=== PATIENT | female | born 1970 | race Caucasian/White ===

== ENCOUNTER 2016-05-20 08:31 | Emergency (ER) | payer BC, OTHER ==
[~2016-05-20] VITALS: Ht 177.8 cm; Wt 65.0 kg
[~2016-05-20 08:31] MED LIST: ALBU1AER9 INH; CHOL100010 PO; LORA24TA7 PO; MOME50SP5 NAE; MULTTAB58 PO; SENN-65 PO
[2016-05-20 08:41] VITALS: TEMP 36.8; Ht 177.8 cm; Wt 65.0 kg
[2016-05-20] MEDS ORDERED: CPRDOTS OT (09:03)
[2016-05-20] MEDS ORDERED: HYDR-5688 PO (09:03)
[2016-05-20] MEDS ORDERED: AMOX500T3 PO (09:03)
[2016-05-20] MEDS ORDERED: ALBU18002 INH (09:05)
[2016-05-20] MEDS ORDERED: RIZA10TA18 PO (09:05)
--- NOTE | 2016-05-20 09:06 | EMERGENCY ROOM VISIT NOTE ---
ED Visit Note First contact with patient: 08:45 CHIEF COMPLAINT: Earache HISTORY OF PRESENT ILLNESS: This 46-year-old female patient presents to the emergency department ambulatory and states they have had a right sided earache since last night. The pain is moderate, and is gradually increasing. They have noticed swelling and tenderness around the ear canal and pain below the ear on the upper neck. The pain is rated as severe and 7.5/10. The patient has none been swimming recently. The patient a history of ear problems with infection in that ear several years ago. The patient states that she has also had a low- grade fever, sore throat, congestion and a dry cough. She has tried Tylenol with no relief the pain. The patient states that she woke up with the drainage on her pillow. She states the pain did not improve once the drainage started. REVIEW OF SYSTEMS: A 10 system review of systems was completed with positives and pertinent negatives listed in the HPI. ALLERGIES: Adhesives, clindamycin, ibuprofen, Zofran MEDICATIONS: See nursing notes PMH: Reflux, irritable bowel syndrome, asthma SOCIAL HISTORY: The patient is employed. She does not smoke PHYSICAL EXAM: Vital Signs: Reviewed Nurse's notes, vital signs stable. GENERAL : This is a 46-year-old female, in no acute distress, non toxic in appearance, well developed, well nourished. SKIN: Normal. MOUTH: The pharynx is normal in appearance and the tonsils are not enlarged. The airway is patent. There are no exudates over the tonsils. EARS: The right tympanic membrane is flat and there appears to be effusion and the ear canal is swollen and inflamed and there is tragal tenderness. I cannot completely visualize the entire tympanic membrane. I do not visualize an obvious perforation. The left tympanic membrane is pearly ambrose without erythema or bulging and the external auditory canal is clear. HEART: Regular rate and rhythm without murmurs gallops or rubs. LUNGS: Clear to auscultation bilaterally without wheezes, rales or rhonchi. No dullness to percussion. No accessory muscle use. No retractions. ED COURSE: I examined the patient. The patient has an otitis externa and will be placed on Ciprodex. She will also be placed on amoxicillin. I do not visualize any obvious perforation but she will be covered with drops and oral antibiotics. She was given a small prescription for Wickes. She should follow- up with her family doctor in 5-7 days for recheck. She should return with worsening symptoms. The patient was discharged home in stable condition. I reviewed the prescription drug monitoring website. The patient has not had recent narcotic prescriptions filled. Current/Historical Medications Scheduled Ciprofloxacin/Dexamethasone (Ciprodex 0.3-0.1 %), 4 DROPS OT BID Scheduled PRN Albuterol Sulfate (Proair Respiclick), 2 PUFFS INH QID PRN for Shortness of Breath Hydrocodone/Acetaminophen 5MG/325MG (Wickes 5MG/325MG), 1 TABLET PO Q6 PRN for Pain Rizatriptan Benzoate (Maxalt), 10 MG PO UD PRN for Migraine Allergies Coded Allergies: Ondansetron (Verified Allergy, Intermediate, tachycardia, 05/20/16) Ibuprofen (Verified Allergy, Mild, 05/20/16) Adhesives (Verified Allergy, Unknown, SKIN RASH/PAPER TAPE, 05/20/16) Clindamycin (Verified Allergy, Unknown, UNKNOWN, 05/20/16) upsets stomach Uncoded Allergies: POWDERED GLOVES (Allergy, Unknown, Breaksout, 05/05/11) PT denies latex allergy. Vital Signs Date Time Temp Pulse Resp B/P Pulse Ox O2 Delivery O2 Flow Rate FiO2 05/20/16 09:28 70 16 110/74 99 05/20/16 08:41 36.8 77 18 102/71 97 Room Air Departure Information Impression Primary Impression: Otitis externa Additional Impression: Otitis media Dispostion Home / Self-Care Condition GOOD Prescriptions Hydrocodone/Acetaminophen 5MG/325MG (Wickes 5MG/325MG) Tab 1 TABLET PO Q6 Y for Pain, #12 TAB For Initial Treatment Prov: Effie Lockwood PA-C 05/20/16 Ciprofloxacin/Dexamethasone (Ciprodex 0.3-0.1 %) 112 Drops/7.5 Ml Susp 4 DROPS OT BID for 5 Days, #1 BTL Prov: Effie Lockwood PA-C 05/20/16 Referrals [facility] (PCP) Sunny Escalera M.D. Forms HOME CARE DOCUMENTATION FORM, IMPORTANT VISIT INFORMATION, WORK / SCHOOL INSTRUCTIONS Patient Instructions ED Otitis Externa, [facility] Additional Instructions Wickes 1 tablet every 6 hours if needed for severe pain. Do not drink or drive while taking Wickes and do not take with Tylenol. Use the eardrops every 12 hours for 5-7 days Amoxicillin every 8 hours for 10 days Return to the emergency Department with any worsening symptoms Otherwise, recheck with your family doctor in 5-7 days. You may need to see an ear nose and throat doctor if symptoms are not improving. Work Instructions Return To Work: 1 day Problem Qualifiers
[2016-05-20 09:28] VITALS: BP 110/74; PULSE 70; O2SAT 99
== END 2016-05-20 09:25 | disposition home or self-care (01) ==
LOC: C.EDB 08:32 → C.EDA 09:25
DX: H60.90 Unspecified otitis externa, unspecified ear (principal); H66.90 Otitis media, unspecified, unspecified ear; K21.9 Gastro-esophageal reflux disease without esophagitis; K58.9 Irritable bowel syndrome, unspecified; J45.909 Unspecified asthma, uncomplicated; Z88.6 Allergy status to analgesic agent; Z88.8 Allergy status to other drugs, medicaments and biological substances; Z91.09 Other allergy status, other than to drugs and biological substances

== ENCOUNTER 2017-06-29 12:43 | Emergency (ER) | payer BC, OTHER ==
[~2017-06-29] VITALS: Ht 177.8 cm; Wt 60.0 kg
[~2017-06-29 12:43] MED LIST changes: +ALBU18002 INH; -ALBU1AER9 INH; -CHOL100010 PO; -LORA24TA7 PO; -MOME50SP5 NAE; -MULTTAB58 PO; +RIZA10TA18 PO; -SENN-65 PO
[2017-06-29 13:06] VITALS: Ht 177.8 cm; Wt 60.0 kg
[2017-06-29] MEDS ORDERED: MoRPHine SULFATE 4 MG/ML 1 ML CARP\\VIAL IV STA (13:13)
[2017-06-29] MEDS ORDERED: OPTIRAY 320 IV PRN (13:30)
[2017-06-29] MEDS ORDERED: MOML PO (13:39)
[2017-06-29] MEDS ORDERED: ESTR1 PO (13:39)
[2017-06-29] MEDS ORDERED: OXYB5SYP4 PO (13:39)
[2017-06-29 13:40] LABS: BASO % 0.3 %; BASO ABS # 0.02 K/uL (0-0.2); EOS % 0.6 %; EOS ABS # 0.04 K/uL (0-0.5); HEMATOCRIT 42.3 % (37-47); HEMOGLOBIN 14.2 g/dL (12.0-16.0); IG# 0.01 K/uL (0.00-0.02); LYMPH ABS # 1.53 K/uL (1.2-3.4); MEAN CELL VOLUME 92.8 fL (80-100); MEAN CORPUSCULAR HEMOGLOBIN 31.1 pg (25-34); MEAN CORPUSCULAR HGB CONC 33.6 g/dl (32-36); MONO % 6.2 %; MONO ABS # 0.45 K/uL (0.11-0.59); NEUT % 71.8 %; NEUT ABS # 5.22 K/uL (1.4-6.5); PLATELET COUNT 242 K/uL (130-400); RED CELL DISTRIBUTION WIDTH CV 11.9 % (11.5-14.5); WHITE BLOOD COUNT 7.27 K/uL (4.8-10.8)
[2017-06-29 13:57] LABS: ALBUMIN 4.1 gm/dl (3.4-5.0); CALCIUM 8.7 mg/dl (8.5-10.1); CREATININE 0.68 mg/dl (0.60-1.20); POTASSIUM 3.7 mmol/L (3.5-5.1)
[2017-06-29 14:00] LABS: TOTAL PROTEIN 8.3 gm/dl (6.4-8.2)
--- NOTE | 2017-06-29 14:33 | DIAGNOSTIC IMAGING REPORT ---
ABD/PELVIS IV CONTRAST ONLY CT DOSE: 338.59 mGycm HISTORY: Flank pain right sided abd pain, RLQ tenderness TECHNIQUE: Multiaxial CT images of the abdomen and pelvis were performed following the use of intravenous contrast. A dose lowering technique was utilized adhering to the principles of ALARA. COMPARISON STUDY: 06/09/2012 FINDINGS: Lung bases are clear. The ductal prominence slightly increased in the prior study post cholecystectomy. A well-defined obstructing lesion is not seen below MRCP should be considered. Kidneys enhance uniformly. Bowel pattern is remarkable for a considerable increase in fecal load throughout the colon. There is evidence for fecal impaction within the rectum. Mild reactive small bowel ileus. The appendix is identified segmentally and appears unremarkable. IMPRESSION: 1. Considerable increase in fecal load throughout the colon consistent with fecal stasis. 2. Rectal fecal impaction. 3. Normal appendix. 4. Slight increase in biliary ductal prominence post cholecystectomy compared to the prior study of 2012. MRCP is suggested as follow-up The above report was generated using voice recognition software. It may contain grammatical, syntax or spelling errors. Electronically signed by: Mickey Berg M.D. 06/29/2017 2:32 PM Dictated Date/Time: 06/29/2017 2:22 PM
[2017-06-29] MEDS ORDERED: PROMETHAZINE HCL INJ 12.5 MG in SODIUM CHLORIDE 0.9% 50ML 50 ML IV STA (14:41)
[2017-06-29] MEDS ORDERED: MoRPHine SULFATE 2 MG/ML CARP IV STA (14:41)
--- NOTE | 2017-06-29 15:47 | EMERGENCY ROOM VISIT NOTE ---
History First contact with patient: 13:05 Chief Complaint: ABDOMINAL PAIN Stated Complaint: FLANK PAIN Nursing Triage Summary: pt reports right lower abd pain x 2 weeks. pt reports she had an ultrasound done yesterday out pt. pt reports increased constipation "more than i usually have." pt reports her last bm was this am "just a little bit." pt reports nausea. History of Present Illness The patient is a 47 year old female who presents to the Emergency Room with complaints of abdominal pain and increased constipation. The patient reports that she has had pain in the right side of her abdomen for the past 2 weeks. She does note she had a fever of 102F 2 weeks ago, but no fever since then. She reports it has been a dull, aching pain but worsened over the past few days and has now been a sharp, knifelike pain. She rates her overall discomfort a 7/ 10. She is concerned she could have appendicitis. Patient does note she has chronic constipation, but states she has had even fewer bowel movements than normal for the past few days. She has been nauseous, but has not vomited. She states the pain is worse when she is moving or lifting things. She reports a previous cholecystectomy. She denies urinary symptoms. Review of Systems A complete 10 point review of systems was reviewed with the patient with pertinent positives and negatives as per history of present illness. All else were negative. Past Medical/Surgical History Medical Problems: (1) Chronic constipation Surgical Problems: (1) History of cholecystectomy Social History Smoking Status: Never Smoker Alcohol Use: occasionally Drug Use: none Occupation Status: employed Current/Historical Medications Scheduled Estradiol (Estrace), 1 MG PO DAILY Oxybutynin Chloride (Oxybutynin Chloride), 15 MG PO DAILY Scheduled PRN Albuterol Sulfate (Proair Respiclick), 2 PUFFS INH QID PRN for Shortness of Breath Magnesium Hydroxide (Milk Of Magnesia), 30 ML PO DAILY PRN for Constipation Rizatriptan Benzoate (Maxalt), 10 MG PO UD PRN for Migraine Physical Exam Vital Signs Date Time Temp Pulse Resp B/P (MAP) Pulse Ox O2 Delivery O2 Flow Rate FiO2 06/29/17 16:14 36.6 65 18 95/70 99 06/29/17 14:39 65 18 119/72 99 06/29/17 13:06 36.6 82 18 136/74 99 Room Air Physical Exam VITALS: Vitals are noted on the nurse's note and reviewed by myself. Vital signs stable. GENERAL: This is a 47-year-old female, in no acute distress, nondiaphoretic, well-developed well-nourished. SKIN: The skin was without rashes. EARS: External auditory canals clear, tympanic membranes pearly ambrose without erythema or effusion bilaterally. EYES: Pupils equal round and reactive to light and accommodation. MOUTH: Mucous membranes moist. Tonsils are not enlarged. Pharynx without erythema or exudate. NECK: Supple without nuchal rigidity. No lymphadenopathy. HEART: Regular rate and rhythm without murmurs gallops or rubs. LUNGS: Clear to auscultation bilaterally without wheezes, rales or rhonchi. ABDOMEN: Positive bowel sounds x 4. Soft, nondistended. There is mild tenderness to palpation to the right mid and lower abdomen. No guarding or rebound tenderness. NEURO: Patient was alert and oriented to person place and time. Medical Decision & Procedures ER Provider Diagnostic Interpretation: ABD/PELVIS IV CONTRAST ONLY FINDINGS: Lung bases are clear. The ductal prominence slightly increased in the prior study post cholecystectomy. A well-defined obstructing lesion is not seen below MRCP should be considered. Kidneys enhance uniformly. Bowel pattern is remarkable for a considerable increase in fecal load throughout the colon. There is evidence for fecal impaction within the rectum. Mild reactive small bowel ileus. The appendix is identified segmentally and appears unremarkable. IMPRESSION: 1. Considerable increase in fecal load throughout the colon consistent with fecal stasis. 2. Rectal fecal impaction. 3. Normal appendix. 4. Slight increase in biliary ductal prominence post cholecystectomy compared to the prior study of 2012. MRCP is suggested as follow-up Laboratory Results 06/29/17 13:25 Red Blood Count 4.56, Mean Corpuscular Volume 92.8, Mean Corpuscular Hemoglobin 31.1, Mean Corpuscular Hemoglobin Concent 33.6, Mean Platelet Volume 10.0, Neutrophils (%) (Auto) 71.8, Lymphocytes (%) (Auto) 21.0, Monocytes (%) (Auto) 6.2, Eosinophils (%) (Auto) 0.6, Basophils (%) (Auto) 0.3, Neutrophils # (Auto) 5.22, Lymphocytes # (Auto) 1.53, Monocytes # (Auto) 0.45, Eosinophils # (Auto) 0.04, Basophils # (Auto) 0.02 06/29/17 13:25 Test 06/29/17 13:25 06/29/17 14:09 White Blood Count 7.27 K/uL (4.8-10.8) Red Blood Count 4.56 M/uL (4.2-5.4) Hemoglobin 14.2 g/dL (12.0-16.0) Hematocrit 42.3 % (37-47) Mean Corpuscular Volume 92.8 fL (80-100) Mean Corpuscular Hemoglobin 31.1 pg (25-34) Mean Corpuscular Hemoglobin Concent 33.6 g/dl (32-36) Platelet Count 242 K/uL (130-400) Mean Platelet Volume 10.0 fL (7.4-10.4) Neutrophils (%) (Auto) 71.8 % Lymphocytes (%) (Auto) 21.0 % Monocytes (%) (Auto) 6.2 % Eosinophils (%) (Auto) 0.6 % Basophils (%) (Auto) 0.3 % Neutrophils # (Auto) 5.22 K/uL (1.4-6.5) Lymphocytes # (Auto) 1.53 K/uL (1.2-3.4) Monocytes # (Auto) 0.45 K/uL (0.11-0.59) Eosinophils # (Auto) 0.04 K/uL (0-0.5) Basophils # (Auto) 0.02 K/uL (0-0.2) RDW Standard Deviation 40.0 fL (36.4-46.3) RDW Coefficient of Variation 11.9 % (11.5-14.5) Immature Granulocyte % (Auto) 0.1 % Immature Granulocyte # (Auto) 0.01 K/uL (0.00-0.02) Anion Gap 2.0 mmol/L (3-11) Est Creatinine Clear Calc Drug Dose 94.8 ml/min Estimated GFR () 119.0 Estimated GFR (Non- 102.7 BUN/Creatinine Ratio 16.2 (10-20) Calcium Level 8.7 mg/dl (8.5-10.1) Total Bilirubin 0.4 mg/dl (0.2-1) Aspartate Amino Transf (AST/SGOT) 19 U/L (15-37) Alanine Aminotransferase (ALT/SGPT) 25 U/L (12-78) Alkaline Phosphatase 65 U/L (45-117) Total Protein 8.3 gm/dl (6.4-8.2) Albumin 4.1 gm/dl (3.4-5.0) Globulin 4.2 gm/dl (2.5-4.0) Albumin/Globulin Ratio 1.0 (0.9-2) Lipase 155 U/L (73-393) Urine Color YELLOW Urine Appearance CLEAR (CLEAR) Urine pH 7.0 (4.5-7.5) Urine Specific [place] 1.012 (1.000-1.030) Urine Protein NEG (NEG) Urine Glucose (UA) NEG (NEG) Urine Ketones NEG (NEG) Urine Occult Blood NEG (NEG) Urine Nitrite NEG (NEG) Urine Bilirubin NEG (NEG) Urine Urobilinogen NEG (NEG) Urine Leukocyte Esterase TRACE (NEG) Urine WBC (Auto) 1-5 /hpf (0-5) Urine RBC (Auto) 0-4 /hpf (0-4) Urine Hyaline Casts (Auto) 1-5 /lpf (0-5) Urine Epithelial Cells (Auto) >30 /lpf (0-5) Urine Bacteria (Auto) NEG (NEG) Urine Test NEG (NEG) Medications Administered Medications (Trade) Dose Ordered Sig/Lauro Route Start Time Stop Time Status Last Admin Dose Admin Morphine Sulfate (MoRPHine SULFATE INJ) 4 mg NOW STAT IV 06/29/17 13:13 06/29/17 13:17 DC 06/29/17 13:34 4 MG Morphine Sulfate (MoRPHine SULFATE INJ) 2 mg NOW STAT IV 06/29/17 14:41 06/29/17 14:42 DC 06/29/17 15:03 2 MG Promethazine HCl 12.5 mg/Sodium Chloride 50.5 ml @ 204 mls/hr NOW STAT IV 06/29/17 14:41 06/29/17 14:55 DC 06/29/17 15:03 204 MLS/HR Medical Decision Differential diagnosis includes appendicitis, pancreatitis, bowel obstruction, colitis, gastroenteritis, constipation, UTI, among others. The patient is a 47-year-old female who presents today complaining of right- sided abdominal pain. Labs revealed no leukocytosis, anemia or concerning electrolyte abnormalities. Urinalysis was not suggestive of infection. Urine was negative. CT of the abdomen and pelvis showed constipation with no other acute findings. Patient was given instructions to perform a bowel prep with MiraLAX at home to resolve her constipation. CT did show some slight increase in biliary ductal prominence. LFTs were not elevated. Patient was advised that this may need follow-up with MRCP by her PCP. She was instructed to make an appointment for follow-up this week. The patient's case was reviewed with Dr. Rebolledo, ED attending physician, who agreed with my assessment and treatment plan. Based on the patient's presentation and work up, I feel the patient is stable for outpatient treatment. The patient was educated to return to the emergency department for any worsening of their current condition or new/concerning symptoms. She will follow up with her PCP. Medication Reconcilliation Current Medication List: was personally reviewed by me Blood Pressure Screening Patient's blood pressure: Normal blood pressure Impression Primary Impression: Constipation Additional Impression: Right lower quadrant pain Departure Information Dispostion Home / Self-Care Condition GOOD Referrals John Raines PA-C (PCP) Patient Instructions My [facility] Additional Instructions You have been treated in the Emergency Department for your Abdominal Pain. Laboratory results and imaging studies have ruled out any emergent causes for your abdominal pain which would warrant admission or surgery. Your CT scan showed evidence of significant constipation. Mix 250 mg of MiraLAX with 64 ounces of Gatorade. Drink 8 ounces of this every 15 minutes until you have a bowel movement. You may also use [id number] suppositories or enemas to help with your constipation. Be sure to drink plenty of fluids. Follow-up with your primary care provider within 48 hours for a repeat examination. For pain control, you can use the following plzo-tjv-ilutvop medicines (if >12 yo): - Regular strength (325mg/tab) Tylenol (acetaminophen) 2 tabs every 4-6 hours as needed. Do not exceed 12 tablets in a 24 hour period. Avoid taking more than 4 grams (4000 mg) of Tylenol per day. This includes any other sources of acetaminophen you may take on a regular basis. - Regular strength (200 mg/tab) Advil (ibuprofen) 1-2 tabs every 4-6 hours as needed. Do not exceed a dose of 3200 mg per day. Return to the emergency department if your symptoms persist despite treatment plan outlined above or if the following symptoms occur: Worsening pain, fever, vomiting or other new/concerning symptoms. Problem Qualifiers Primary Impression: Constipation Constipation type: unspecified constipation type Qualified Codes: K59.00 - Constipation, unspecified
[2017-06-29 16:14] VITALS: BP 95/70; PULSE 65; TEMP 36.6; O2SAT 99
== END 2017-06-29 16:15 | disposition home or self-care (01) ==
LOC: C.EDB 12:47 → C.EDA 16:15
DX: K59.00 Constipation, unspecified (principal); R10.31 Right lower quadrant pain

== ENCOUNTER 2023-06-15 06:16 | Observation (INO) ==
--- NOTE | 2023-05-18 10:35 | PAT Medication Instructions ---
Medication Instructions Date of Service May 18, 2023 Home Medications albuterol sulfate 90 mcg/actuation aerosol inhaler 1 inh inhalation QID PRN baclofen 10 mg tablet 10 mg PO BID PRN naproxen sodium 220 mg capsule (Aleve) 220 mg PO BID PRN ASK your surgeon for instructions naproxen sodium 220 mg capsule (Aleve) 220 mg PO BID PRN Take morning of surgery With a small sip of water, OTHERWISE NOTHING TO EAT OR DRINK AFTER MIDNIGHT: albuterol sulfate 90 mcg/actuation aerosol inhaler 1 inh inhalation QID PRN(use if needed; please bring with you to hospital day of surgery if possible) baclofen 10 mg tablet 10 mg PO BID PRN(if needed) Take evening before surgery albuterol sulfate 90 mcg/actuation aerosol inhaler 1 inh inhalation QID PRN(if needed) baclofen 10 mg tablet 10 mg PO BID PRN(if needed) Other Notes If you have any questions please call us at [phone] or [phone] or [phone] or [phone]
--- NOTE | 2023-05-22 10:09 | Anesthesiology Consultation ---
Date of Service May 22, 2023 Assessment & Plan (1) Encounter for pre-operative examination: - Infectious disease screening: Per assessment on 05/22/23: No known infectious disease contacts or current infectious disease symptoms. No noted recent Covid positive test result. - Chlorhexidine allergy: Hx rash reaction with previous chlorhexidine wipe use prior to surgery. No chlorhexidine wipes provided to patient for upcoming surge ry. - Patient acceptable risk for surgery pending surgeon-ordered PCP preop evaluation ([facility]). Chart Review Chart Review: Patient seen in Pre Admission Testing Teaching & Discussion Pre-Anesthesia Teaching/Discussion Notes: Instructed NPO after midnight before surgery,except medications with 15 cc of water. Medication instructions provided according to the PAT guidelines. History Surgery Operation Date: 06/12/23 07:45 Proposed Procedures p C4-C6 Anterior Cervical Discectomy and Fusion, Spinal Cord Monitoring - Kodi Royal DO Height/Weight Height: 5 ft 10 in Weight: 61.6 kg Allergies Allergy/AdvReac Type Severity Reaction Status Date / Time ondansetron Allergy Intermediate Tachycardia Verified 05/17/23 08:49 adhesive Allergy Mild Rash/paper Verified 05/19/23 16:30 tape chlorhexidine Allergy Mild Rash Verified 05/17/23 08:49 clindamycin Allergy Unknown Unknown Verified 05/17/23 08:49 polyethylene glycol 3350 AdvReac Severe Bloating Verified 05/17/23 08:49 [From Miralax] ibuprofen AdvReac Mild Easy Verified 05/19/23 16:30 bruising POWDERED GLOVES Allergy Mild Rash (if Uncoded 05/19/23 16:30 worn) Medications Home Medications Medication Instructions Recorded Confirmed Last Taken albuterol sulfate 90 mcg/actuation 1 inh inhalation QID PRN sob 05/17/2305/16 Unknown aerosol inhaler baclofen 10 mg tablet 10 mg PO BID PRN Pain 05/17/23 05/17/23 Unknown naproxen sodium 220 mg capsule 220 mg PO BID PRN Pain 05/17/23 05/17/23 Unknown (Verónica) Past Medical History Medical History Asthma Cystocele GERD (gastroesophageal reflux disease) History of kidney stones Hx of cervical cancer s/p surgery Hx of thyroid disease Hx, thyroid levels WNL per most recent monitoring- no meds Hx of tuberculosis 1988, "cleared" after full treatment course x many months- asymptomatic IBS (irritable bowel syndrome) Migraine Exercise / Class Metabolic Activity II 4-5 Yardwork/Stairs/Walk up hill (one FS (no CP, no SOB)) Past Family History Family History Mother Ovarian cancer Myocardial infarction Breast cancer Daughter Cervical cancer Father Prostate cancer Sister Cervical cancer Hypertension Other No family history of adverse response to anesthesia Denies family history of Colorectal cancer Past Surgical History Surgical History H/O inguinal hernia repair H/O shoulder surgery left H/O umbilical hernia repair History of bilateral tubal ligation History of bunionectomy right/left History of carpal tunnel surgery right History of cholecystectomy History of colonoscopy History of esophagogastroduodenoscopy (EGD) History of partial hysterectomy History of tonsillectomy S/P laparoscopic surgery linx procedure [place] teeth removed Past Anesthesia History No Hx of Anesthesia Complications and No Family Hx of Anesthesia Complications History of PONV No Hx of PONV and No Hx of Motion Sickness Social History Smoking Status: Former smoker Do You Dip or Chew Tobacco: No Smoking End Date: Quit 2013 Hx Alcohol Use: Yes alcohol intake frequency: holidays/special occasions only Hx Substance Use: No substance use type: does not use Review of Systems Patient denies chest pain, shortness of breath, dyspnea on exertion, fever, chills, cough, wheezing, palpitations. Physical Exam Vital Signs BP 95/61 (baseline 90s/60s- chronic, asymptomatic) P 71 TEMP 98.2 SP02 96%RA RESP 16 Physical Decreased cervical extension range of motion. Full TMJ range of motion. TMD 3 finger breaths Mallampati Score 1 Dentition: intact Lungs: clear throughout to auscultation Cardiac: regular rate and rhythm, no murmurs noted Spine: normal Carotid arteries: negative bruit Extremities: no LE edema Lab Results Anesthesia Preop Results Results Anesthesia Widget: WBC 4.97 K/ul (4.8-10.8) 05/22/23 Hgb 12.9 g/dl (12.0-16.0) 05/22/23 Hct 39.7 % (37.0-47.0) 05/22/23 Plt 202 K/uL (130-400) 05/22/23 Na 139 mmol/L (136-145) 05/22/23 K 3.8 mmol/L (3.5-5.1) 05/22/23 Cl 105 mmol/L (98-107) 05/22/23 CO2 29 mmol/L (21-32) 05/22/23 BUN 14 mg/dl (6-23) 05/22/23 Creat 0.57 mg/dl (0.6-1.2) L 05/22/23 Glucose Level 85 mg/dl (70-99(Fasting)) 05/22/23 PT 11.2 Seconds (9.0-12.0) 05/22/23 PTT 29 Seconds (21-31) 05/22/23 INR 1.0 (0.9-1.1) 05/22/23 Urine Color Yellow 05/22/23 Urine Appearance Clear (Clear) 05/22/23 Urine pH 6.5 (4.5-7.5) 05/22/23 Urine Specific [place] 1.008 (1.000-1.030) 05/22/23 Urine Protein Negative (Negative) 05/22/23 Urine Glucose (UA) Negative (Negative) 05/22/23 Urine Ketones Negative (Negative) 05/22/23 Urine Blood Negative (Negative) 05/22/23 Urine Nitrite Negative (Negative) 05/22/23 Urine Bilirubin Negative (Negative) 05/22/23 Urine Urobilinogen Negative (Negative) 05/22/23 Urine Leukocyte Esterase Trace (Negative) H 05/22/23 Urine WBC (Auto) 1-5 /hpf (0-5) 05/22/23 Urine RBC (Auto) 0-4 /hpf (0-4) 05/22/23 Urine Hyaline Casts (Auto) 0 /lpf (0-5) 05/22/23 Urine Epithelial Cells (Auto) 5-10 /lpf (0-5) H 05/22/23 Urine Bacteria (Auto) Negative (Negative) 05/22/23 Blood Type A Positive 05/22/23 Antibody Screen NEGATIVE 05/22/23 Testing Electrocardiogram Date: 05/22/23 SB at 52bpm. "Otherwise normal ECG" Chest X-Ray Date: 05/22/23 FINDINGS: Redemonstration of perigastric surgical hardware. The cardiomediastinal silhouette is normal. The lungs are clear. No evidence of pleural effusion or pneumothorax. IMPRESSION: No acute chest disease.
[~2023-06-15 06:16] MED LIST changes: +ACETAMINOPHEN 500 MG TAB PO SCH; -ALBU18002 INH; +CeleBREX 200 MG CAP PO SCH; +GABAPENTIN 600 MG DOSE PO SCH; +LR 15ML/HR IV SCH; +LR 60ML/HR IV SCH; -RIZA10TA18 PO; +ceFAZolin 2000MG 2,000 MG/15 ML SYR IV SCH
[2023-06-15] MEDS: LR 15ML/HR IV SCH (07:00)
[2023-06-15] MEDS ORDERED: LIDOCAINE 2% 2 ML VIAL/AMP(20MG/ML) INFIL ONE (07:05)
[2023-06-15] MEDS ORDERED: DEXAMETHASONE SOD INJ 4 MG/ML VIAL ONE ×2 (07:05→07:07)
[2023-06-15] MEDS ORDERED: MIDAZOLAM HCL 1 MG/ML 2ML VIAL ONE (07:05)
[2023-06-15] MEDS ORDERED: fentaNYL citrate PF 100 MCG/2 ML VIAL ONE ×2 (07:05→08:34)
[2023-06-15] MEDS ORDERED: ROCURONIUM BROMIDE 10 MG/ML 5 ML VIAL IV ONE ×2 (07:05→08:29)
[2023-06-15] MEDS ORDERED: PROPOFOL IV EMULSION 10 MG/ML 20 ML VIAL IV ONE (07:05)
[2023-06-15] MEDS ORDERED: FLUMAZENIL 0.1 MG/1 ML 10 ML VIAL IV PRN (07:08)
[2023-06-15] MEDS ORDERED: PROMETHAZINE HCL 6.25 MG in SODIUM CHLORIDE 0.9% 50 ML IV PRN (07:08)
[2023-06-15] MEDS ORDERED: HYDROmorphone INJ 1 MG/ML SYRINGE IV PRN ×2 (07:08→12:12)
[2023-06-15] MEDS ORDERED: ePHEDrine sulfate 50 MG/ML AMP IV PRN (07:08)
[2023-06-15] MEDS ORDERED: NALOXONE HCL 0.4 MG/1 ML VIAL/CARP IV PRN ×2 (07:08→12:12)
[2023-06-15] MEDS ORDERED: LABETALOL HCL IV 5 MG/ML 20ML IV PRN (07:08)
[2023-06-15] MEDS ORDERED: ATROPINE SULFATE 0.1 MG/ML 10ML SYR IV PRN (07:08)
[2023-06-15] MEDS ORDERED: SUGAMMADEX SODIUM 200 MG/2 ML VIAL IV ONE (07:09)
[2023-06-15] MEDS: LR 60ML/HR IV SCH (07:15)
[2023-06-15] MEDS: CeleBREX 200 MG CAP PO SCH (07:15)
[2023-06-15] MEDS: ACETAMINOPHEN 500 MG TAB PO SCH (07:16)
[2023-06-15] MEDS: GABAPENTIN 600 MG DOSE PO SCH (07:16)
--- NOTE | 2023-06-15 07:45 | History & Physical Bridge Note ---
Date of Service June 15, 2023 History & Physical Bridge Note I have examined the patient, reviewed the History & Physical and in the interval since the performance of the History & Physical I have noted the following changes of clinical significance: no changes noted
--- NOTE | 2023-06-15 07:46 | History & Physical Report ---
Date of Service June 15, 2023 Assessment & Plan (1) Cervical stenosis of spinal canal: Plan: Anterior cervical discectomy and fusion C4-C6 History of Present Illness Chief Complaint: Neck and arm pain Primary Care Provider: Lala Simmons PA-C This is a 53-year-old female who presents chronic persistent neck and arm pain Extensive course of nonoperative care is here for surgical invention. Allergies Allergy/AdvReac Type Severity Reaction Status Date / Time ondansetron Allergy Intermediate Tachycardia Verified 06/15/23 06:56 adhesive Allergy Mild Rash/paper Verified 06/15/23 06:56 tape chlorhexidine Allergy Mild Rash Verified 06/15/23 06:56 clindamycin Allergy Unknown Hives Verified 06/15/23 06:56 polyethylene glycol 3350 AdvReac Severe Bloating Verified 06/15/23 06:56 [From Miralax] ibuprofen AdvReac Mild Easy Verified 06/15/23 06:56 bruising POWDERED GLOVES Allergy Mild Rash (if Uncoded 06/15/23 06:56 worn) Home Medications Medication Instructions Recorded Confirmed Type albuterol sulfate 90 mcg/actuation 1 inh inhalation QID PRN sob 05/17/23 06/15/23 History aerosol inhaler baclofen 10 mg tablet 10 mg PO BID PRN Pain 05/17/23 06/15/23 History naproxen sodium 220 mg capsule 220 mg PO BID PRN Pain 05/17/23 06/15/23 History (Aleve) cholecalciferol (vitamin D3) 125 125 mcg PO DAILY 06/15/23 06/15/23 History mcg (5,000 unit) tablet (Vitamin D3) tramadol 50 mg tablet 50 mg PO HS PRN Pain 06/15/23 06/15/23 History Past Med/Surg History Medical History Asthma Cystocele GERD (gastroesophageal reflux disease) History of kidney stones Hx of cervical cancer s/p surgery Hx of thyroid disease Hx, thyroid levels WNL per most recent monitoring- no meds Hx of tuberculosis 1988, "cleared" after full treatment course x many months- asymptomatic IBS (irritable bowel syndrome) Migraine Surgical History H/O inguinal hernia repair H/O shoulder surgery left H/O umbilical hernia repair History of bilateral tubal ligation History of bunionectomy right/left History of carpal tunnel surgery right History of cholecystectomy History of colonoscopy History of esophagogastroduodenoscopy (EGD) History of partial hysterectomy History of tonsillectomy S/P laparoscopic surgery linx procedure [place] teeth removed Family History Mother Ovarian cancer Myocardial infarction Breast cancer Daughter Cervical cancer Father Prostate cancer Sister Cervical cancer Hypertension Other No family history of adverse response to anesthesia Denies family history of Colorectal cancer Social History Smoking Status: Former smoker Tobacco Type: Cigarettes Smoking End Date: Quit 2013; Second Hand Exposure: Yes (in the past); Do You Dip or Chew Tobacco: No; Hx Alcohol Use: Yes Hx Substance Use: No Preferred Language: Bulgarian Communication Ability: Effective Compound Filler Required: No Beliefs That Will Affect Care: None marital status: Single Current Living Situation: Alone current occupational status: employed How many Children do You have: 3 Feels Safe at Home: Yes Safety Concerns: Feels Safe At This Time Sexual Activity: has been sexually active within the last 12 months Assistive Devices: Glasses Assistive Devices Comment: reading glasses Physical Exam Physical Exam: Patient is alert and oriented heart regular rhythm Lungs clear Results & Data Results & Data Vital Signs (Past 12 Hours) Vital Signs Temp Pulse Resp BP Pulse Ox O2 Del Method 06/15/23 06:54 36.8 C 70 20 121/72 96 Room Air
[2023-06-15] MEDS: ceFAZolin 2000MG 2,000 MG/15 ML SYR IV SCH (08:05)
[2023-06-15] MEDS: ceFAZolin 330 MG/ML 1 GM VIAL ONE (09:04)
[2023-06-15] MEDS: FLOSEAL HEMOSTATIC MATRIX 10ML TOP ONE (09:05)
--- NOTE | 2023-06-15 09:27 | Operative Report ---
Post Operative Report Pre & Post Diagnosis Operation Date: 06/15/23 07:45 Pre-Op Diagnosis: Cervical spinal stenosis with radiculopathy Post-Op Diagnosis: Same I identified the patient and participated in the time-out.: Yes Procedure Operation Date: 06/15/23 07:45 Actual Procedures #1 anterior cervical discectomy with bilateral foraminotomies C4-C5 and C5-C6. #2 anterior cervical arthrodesis C4-C5 C5-C6. #3 placement of Spira 7 mm cage at C4-C5 and 8 mm cage at C5-C6 both filled with I factor. #4 application of K2 M plate and screws from C4-C6. Surgeon William Royal, Tableau Developer Audrey Fuentes Estimated Blood Loss 10 Findings Consistent with Post-Op Diagnosis Specimens None Indications This is a 53-year-old female presents above-mentioned diagnosis after failing course of nonoperative care is here for surgical invention. Description of Procedure Patient was met with identified informed consent obtained. Patient was then taken to the operative suite underwent patient placed in spine position on the Myke table with the head in the Caruso irrigator overhead. All bony promises well-padded eyes inspected to ensure no external pressure placed upon them. This point the anterior cervical spine was prepped and draped in a sterile fashion. With the assistance of fluoroscopy identified the C5 vertebral body and a transverse incision was placed along the right anterior aspect of the cervical spine overlying his region. Blunt dissection with assistance of bipolar cautery was then performed down to expose the anterior cervical spine from C4-C6. So obtained retractors placed. I performed a complete discectomy of C4-C5 out to the uncovertebral's bilaterally. [place] distracting pins utilized to assist in visualization. Removed all posterior annular fibers longitudinal ligament bilateral foraminotomies performed. Endplates burred to subcortical bleeding bone and a 7 mm Spira cage with I factor tapped in position. Then proceeded to see 5 C6. Again complete discectomy performed out to the uncovertebral joints bilaterally. [place] distracting pins again utilized. Removed all posterior annular fibers longitudinal ligament bilateral foraminotomies performed. Endplates burred to subcortical bleeding bone and an 8 mm Spira cage with I factor tapped in position. Distracting apparatus was removed anterior osteophytes burred to a smooth cortical surface and a K2 M plate and screws applied with the assistance of fluoroscopy. The incision was then copiously irrigated explored to ensure no damage to surrounding structures remaining bleeding. 10 round YAIMA drain inserted. The incision was then closed with 2 Vicryl in the fascia and 4 Monocryl for final skin closure. Steri-Strip sterile dressing placed. Patient awakened taken to PACU in stable condition. Please note spinal cord monitoring utilized at the procedure no changes noted. Lastly Audrey Fuentes was present entire procedure and all the patient positioning complex portion of the surgery and final skin closure. I attest to the content of the Intraoperative Record and any orders documented therein. Any exceptions are noted below.
--- NOTE | 2023-06-15 10:14 | Fluoroscopy Report ---
FL cervical 2-3V CLINICAL HISTORY: ACDF C4-C6 COMPARISON STUDY: None. FLUOROSCOPY TIME: 8 seconds FLUOROSCOPY IMAGES: 2 Ka,r: 0.5 mGy FINDINGS: Anterior cervical discectomy and fusion from C4 through C6. The hardware appears intact. A surgical drain and endotracheal tube are partially visualized. The first image demonstrates a surgica l sponge at the operative site. This was removed on the second image. IMPRESSION: Fluoroscopic assistance as above. ACT 112: Negative or not required by law. Electronically signed by: Gonzales Bates M.D. 06/15/2023 10:13 AM
[2023-06-15] MEDS: fentaNYL citrate PF 100 MCG/2 ML VIAL IV PRN (10:20)
--- NOTE | 2023-06-15 11:09 | Anesthesiology Progress Note ---
Date of Service June 15, 2023 Anesthesia Post Procedure Vital Signs Vital Signs: Temp Pulse Resp BP Pulse Ox O2 Del Method O2 Flow Rate 06/15/23 10:55 36.4 C L 66 12 117/74 100 Nasal Cannula 2 06/15/23 10:45 69 12 113/72 100 Nasal Cannula 2 06/15/23 10:35 68 16 131/72 100 Nasal Cannula 2 06/15/23 10:25 64 18 114/80 100 Nasal Cannula 2 06/15/23 10:15 68 20 114/76 100 Nasal Cannula 2 06/15/23 10:05 66 14 112/78 100 Nasal Cannula 2 06/15/23 09:55 77 20 114/80 100 Nasal Cannula 2 06/15/23 09:45 36.2 C L 86 18 129/82 99 Nasal Cannula 6 06/15/23 06:54 36.8 C 70 20 121/72 96 Room Air Pain Intensity Neck: Pain Intensity: 2 Transfer of Care Handoff Completed per policy Notes Mental Status: alert / awake / arousable Patient Amnestic to Procedure: Yes Nausea / Vomiting: adequately controlled Pain: adequately controlled Airway Patency, RR, SpO2: stable & adequate BP & HR: stable & adequate Hydration State: stable & adequate Anesthetic Complications: no major complications apparent
[2023-06-15] MEDS ORDERED: ACETAMINOPHEN 500 MG TAB PO PRN (12:12)
[2023-06-15] MEDS ORDERED: oxyCODONE HCL IR 5 MG TAB (IMMEDIATE RELEASE) PO PRN (12:12)
[2023-06-15] MEDS ORDERED: ACETAMINOPHEN 1,000 MG/100 ML VIAL IV PRN (12:12)
[2023-06-15] MEDS ORDERED: SOD PHOSPHATE/SOD BIPHOSPHATE ENEMA 132 ML BTL PR PRN (12:12)
[2023-06-15] MEDS ORDERED: dexAMETHasone 8 MG in SYRINGE 0 ML IV PRN (12:12)
[2023-06-15] MEDS ORDERED: RACEPINEPHRINE 2.25% NEBU SOLN 0.5 ML VIAL INH PRN (12:12)
[2023-06-15] MEDS ORDERED: DO NOT ADMINISTER FLU VACCINE PRN (12:12)
[2023-06-15] MEDS ORDERED: BACLOFEN 10 MG TAB PO PRN (12:12)
[2023-06-15] MEDS ORDERED: LORazepam 0.5 MG in SYRINGE 0.25 ML IV PRN (12:12)
[2023-06-15] MEDS ORDERED: bisacodyL 10 MG SUPP PR PRN (12:12)
[2023-06-15] MEDS ORDERED: ALBUTEROL HFA 8 GM INHALER INH PRN (12:12)
[2023-06-15] MEDS ORDERED: MAGNESIUM HYDROXIDE SUSP 30 ML UDC PO PRN (12:12)
[2023-06-15] MEDS ORDERED: ALUMINUM/MAGNESIUM SUSP 30 ML UDC PO PRN (12:12)
[2023-06-15] MEDS ORDERED: DO NOT ADMINISTER PNEUMOCOCCAL VACCINE PRN (12:12)
[2023-06-15] MEDS ORDERED: LORazepam 0.5 MG TAB PO PRN (12:12)
[2023-06-15] MEDS ORDERED: diphenhydrAMINE Capsule 25 MG CAP PO PRN (12:12)
[2023-06-15] MEDS ORDERED: hydrOXYzine HCl 25 MG TAB PO PRN (12:12)
[2023-06-15] MEDS ORDERED: traMADol HCL 50 MG TABLET PO PRN (12:12)
[2023-06-15] MEDS: HYDROmorphone INJ 0.5 MG/0.5 ML SYR IV PRN (13:02)
[2023-06-15] MEDS: LACTATED RINGER'S 1,000 ML IV SCH (13:04)
[2023-06-15] MEDS: ceFAZolin 1000MG 1,000 MG/7.5 ML SYR IV SCH (16:01)
[2023-06-15] MEDS: METOCLOPRAMIDE HCL INJ 5 MG/ML 2 ML VIAL IV PRN (16:50)
[2023-06-15] MEDS: PROMETHAZINE HCL 12.5 MG in SODIUM CHLORIDE 0.9% 50 ML IV PRN (18:53)
[2023-06-15] MEDS: DOCUSATE SODIUM/SENNA 50/8.6MG TAB PO SCH (20:11)
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
--- OUTSIDE RECORDS SUMMARY | 2023-06-15 21:29 | External Medical Summary ---
Author Name Unknown Address Unknown Organization K0G:[facility] [address] [place] [id number] Laboratory Report Ordering Provider Test Date Status GABRIELA ANGEL 05/22/2023 07:50:42 Final Observation Date Value Abnormality Reference (Units ) Status Glucose 05/22/2023 07:50:42 85 70-120 (mg /dL) Final Performing Location [facility] [address] [place] [id number]
--- OUTSIDE RECORDS SUMMARY | 2023-06-15 21:29 | External Medical Summary ---
Author Name Unknown Address Unknown Organization K01:[facility] [address] [facility] [place] [address] Laboratory Report Ordering Provider Test Date Status GABRIELA ANGEL 05/22/2023 07:50:42 Final Observation Date Value Abnormality Reference (Units ) Status Triglyceride 05/22/2023 07:50:42 53 <=174 ( mg/dL) Final Triglyceride Reference Range s (mg/dL):
<150 Acceptable
150-174 Borderline high
175-499 High
>=500 Very high Cholesterol 05/22/2023 07:50:42 190 <200 (mg /dL) Final Total Cholesterol Reference Ranges (mg/dL):
<200 Desirable
200-239 Borderline high
>=240 High HDL 05/22/2023 07:50:42 92 >49 (mg/dL ) Final HDL Cholesterol Reference Ra nges (mg/dL):
>=60 High (Desirable)
<50 Low (Undesirable) For Females
<40 Low (Undesirable) For Males NON-HDL CHOLESTEROL 05/22/2023 07:50:42 98 <=159 (mg/dL) Final Non-HDL Cholesterol Referenc e Range (mg/dL):
<100 Target level for high risk ASCVD patient
<130 Optimal for general population
130-159 Near optimal for general population
160-189 Borderline High
190-219 High
>=220 Very High LDL, (calculated) 05/22/2023 07:50:42 87 <= 129 (mg/dL) Final LDL Cholesterol Reference Ra nges (mg/dL):
<70 Target level for high risk ASCVD patient
<100 Optimal for general population
100-129 Near optimal for general population
130-159 Borderline high
160-189 High
>=190 Very high Performing Location [facility] [place] - [address] [facility] [address]
[2023-06-16] MEDS: POLYETHYLENE (MIRALAX) 17 GM PACK PO SCH (04:33)
[2023-06-16] MEDS: FAMOTIDINE 20 MG TAB PO PRN (08:34)
[2023-06-16] MEDS: dexAMETHasone 6 MG in SYRINGE 0 ML IV SCH (08:35)
--- NOTE | 2023-06-16 10:06 | Discharge Summary ---
Date of Service June 16, 2023 Admission HPI Per Admitting Provider This is a 53-year-old female who presents chronic persistent neck and arm pain Extensive course of nonoperative care is here for surgical invention. Principal Diagnosis Cervical spinal stenosis with radiculopathy Discharge Data Allergies Allergy/AdvReac Type Severity Reaction Status Date / Time ondansetron Allergy Intermediate Tachycardia Verified 06/15/23 06:56 adhesive Allergy Mild Rash/paper Verified 06/15/23 06:56 tape chlorhexidine Allergy Mild Rash Verified 06/15/23 06:56 clindamycin Allergy Unknown Hives Verified 06/15/23 06:56 polyethylene glycol 3350 AdvReac Severe Bloating Verified 06/15/23 06:56 [From Miralax] ibuprofen AdvReac Mild Easy Verified 06/15/23 06:56 bruising POWDERED GLOVES Allergy Mild Rash (if Uncoded 06/15/23 06:56 worn) Procedures Performed Operation Date: 06/15/23 07:45 Actual Procedures p C4-C6 Anterior Cervical Discectomy and Fusion, Spinal Cord Monitoring(Not Applicable) - William Royal DO Ordered Studies 06/15/23 07:45 FL cervical 2-3V Routine Hospital Course (1) Cervical stenosis of spinal canal: Patient struggling with some nausea but pain is well-controlled. All radicular symptoms resolved. Swallowing well. No hoarseness. Excellent strength testing. Simply discharged home. Discharge orders instructions found in chart for further review. Total Time Total Time Spent Total Time Spent (In Minutes): 20 minutes Discharge Plan Discharge Items Patient Disposition: Home - Self-Care Reason For Visit: Cervical Spondylosis, Cervical Disc Disease Discharge Diagnosis: Cervical spinal stenosis with radiculopathy Activity: As commented below Non-emergency contact: Primary Care Provider Call non-emergency contact if: you have any medication questions Follow-up/Referrals: Lala Simmons PA-C [Primary Care Provider] - Diet: Regular Addtl Attending Provider Instructions: ACTIVITY RECOMMENDATIONS: SELF CARE INSTRUCTIONS AFTER CERVICAL FUSIONS 1. No smoking. Smoking drastically decreases the chance of a solid fusion. 2. No bending, lifting more than 5 pounds, or twisting (roll like a log when turning in bed). 3. You may shower 3 days after surgery. Thoroughly dry wound. Do not soak in the tub. 4. Cervical collar: Must be worn at all times including sleeping. You may remove the brace only to bath, eat and if you are sitting in a recliner. 5. Please walk as much as you can for exercise. Gradually increase the distance that you walk as your endurance increases. SPECIAL CARE INSTRUCTIONS: VERY IMPORTANT TO READ AND REVIEW A. Do not take any anti-inflammatory medications (i.e. Indocin, Advil, Aspirin, Naprosyn, Aleve, Motrin, etc.) as these may inhibit the chance of a solid fusion. Tylenol is okay to take. B. Your surgical incision has been closed with a cosmetic suture under the skin that will dissolve in about 6 weeks. In 14 days, you can use a pair of clean scissors and cut the suture that is left outside of the skin at the ends of your incision. C. Complications are uncommon, but please contact us if you have any signs or symptoms of: 1. wound infection (fever higher than 102.5 degrees F, redness, separation of wound, drainage, or increasing pain from the incision) 2. blood clots in legs (pain, swelling, redness and warmth in legs) 3. urinary tract infection (fever higher than 102.5 degrees, burning upon urination or increased frequency of urination) 4. nerve problems (inability to walk on your toes or heels, numbness, loss of bowel or bladder control) 5. any other symptoms that concern you. D. Please call the office at if you have any concerns or questions about your operation or recovery. MANAGING PAIN AFTER SPINAL SURGERY 1. Narcotic medication is intended for short-term use and will be provided for surgical pain. Surgical pain usually lasts for a period of 4-6 weeks. Na rcotic medication includes Percocet, Vicodin, Darvocet, Tylenol #3 or Lortab. 2. Longer-term pain is more appropriately treated with non-narcotic medication such as Tylenol ES. 3. Muscle spasm is not appropriately treated with narcotics. Muscle relaxers such as Soma, Flexeril or Skelaxin can be used along with Tylenol ES. 4. Remember that we all live with some "aches and pains". This is not unusual or uncommon after an injury or as we get older. 5. We will provide appropriate medication within the normal guidelines of their prescribed use. We will also be very cautious and aware of potential abuse and extended duration of patients' medication needs. 6. Please allow 2-3 days to process refills. Prescriptions will not be mailed but must be picked up at the office. FOLLOW UP VISIT: Keep your scheduled follow-up appointment. Any questions, please call the office at . Pending Studies at Discharge: No Stand-Alone Forms: My [facility] Medications and DC Order Prescriptions: New oxycodone 5 mg tablet 5 mg PO Q6H PRN (Reason: pain) Qty: 20 0RF Continued baclofen 10 mg Tablet 10 mg PO BID PRN (Reason: Pain) albuterol sulfate 90 mcg/actuation Hfa Aerosol Inhaler 1 inh INHALATION QID PRN (Reason: sob) tramadol 50 mg Tablet 50 mg PO HS PRN (Reason: Pain) cholecalciferol (vitamin D3) [Vitamin D3] 125 mcg (5,000 unit) Tablet 125 mcg PO DAILY Discontinued naproxen sodium [Aleve] 220 mg Capsule 220 mg PO BID PRN (Reason: Pain) Discharge Orders: Discharge Order (Routine); Ordered 06/16/23 Ordered By: William Royal Admission Data Admit Date/Time: 06/15/23 09:30 Attending Provider: William Royal Admit Provider: William Royal Primary Care Provider: Lala Simmons
== END 2023-06-16 14:31 | disposition home or self-care (01) ==
LOC: ASU 06:16 → 3E 06:16
DX: J45.909 Unspecified asthma, uncomplicated; G43.909 Migraine, unspecified, not intractable, without status migrainosus; Z88.6 Allergy status to analgesic agent; Z88.3 Allergy status to other anti-infective agents; K58.9 Irritable bowel syndrome, unspecified; Z79.899 Other long term (current) drug therapy; K21.9 Gastro-esophageal reflux disease without esophagitis; Z88.1 Allergy status to other antibiotic agents; Z01.810 Encounter for preprocedural cardiovascular examination; M47.812 Spondylosis without myelopathy or radiculopathy, cervical region; M47.22 Other spondylosis with radiculopathy, cervical region; Z01.818 Encounter for other preprocedural examination; Z01.812 Encounter for preprocedural laboratory examination; M48.02 Spinal stenosis, cervical region; M50.121 Cervical disc disorder at C4-C5 level with radiculopathy; M50.90 Cervical disc disorder, unspecified, unspecified cervical region; Z87.891 Personal history of nicotine dependence; Z87.442 Personal history of urinary calculi